=== PATIENT | female | born 1950 | race Caucasian/White ===

== ENCOUNTER 2018-02-19 10:24 | Inpatient (IN) ==
[2018-02-19] MEDS ORDERED: ACETAMINOPHEN 325 MG TABLET PO PRN (13:24)
[2018-02-19] MEDS ORDERED: DEXTROSE 50% 25 GM/50 ML SYRINGE IV PRN (13:24)
[2018-02-19] MEDS ORDERED: ONDANSETRON 4 MG/2 ML VIAL IV PRN (13:24)
[2018-02-19] MEDS ORDERED: GLUCAGON 1 MG VIAL IM PRN (13:24)
[2018-02-19] MEDS ORDERED: ZALEPLON 5 MG CAPSULE PO PRN (13:24)
[2018-02-19] MEDS ORDERED: POTASSIUM CHLORIDE RIDER 10 MEQ in PREMIX 1 EACH IV PRN (13:43)
[2018-02-19] MEDS ORDERED: MAGNESIUM SULF RIDER 4 GM in PREMIX 1 EACH IV PRN (13:43)
[2018-02-19] MEDS ORDERED: MAGNESIUM SULF RIDER 2 GM in PREMIX 1 EACH IV PRN (13:43)
[2018-02-19 13:59] LABS: Basophils # 0.1 10*3/uL (0.0-0.2); Basophils % 0.7 % (0.0-0.8); Eosinophils # 0.5 10*3/uL (0.0-0.87); Eosinophils % 5.3 % (0.00-10.9); Hematocrit 35.8 VOL% (35.7-47.0); Hemoglobin 11.8 GM/DL (12.0-16.0); Immature Granulocytes % 0.4 %; Immature Granulocytes Absolute 0.03 #; Lymphocytes # 1.3 10*3/uL (1.4-4.0); Lymphocytes % 15.4 % (21.3-54.2); Mean Corpuscular Hemoglobin 30 PG (27-34); Mean Corpuscular Volume 89.5 FL (87-102); Mean Platelet Volume 10.9 FL (9.6-12.0); Monocytes # 0.6 10*3/uL (0.11-0.8); Monocytes % 7.3 % (1.7-12.7); Neutrophils % 70.9 % (38.7-73.9); Platelet Count 150 T/CUMM (130-400); White Blood Count 8.5 T/CUMM (4-12)
[2018-02-19] MEDS ORDERED: SODIUM CHLORIDE 0.45% 1,000 ML IV SCH (14:30)
[2018-02-19 14:33] LABS: Albumin 3.5 G/DL (3.4-5.0); Bilirubin,Total 0.4 MG/DL (0.2-1.0); Calcium 10.4 MG/DL (8.5-10.1); Osmolality,Calculated 289.5 MOS/KG (273-304); Potassium 3.9 MMOL/L (3.5-5.1); Risk Ratio 4.13; Thyroid Stimulating Hormone 2.14 uIU/ml (0.358-3.74); Total Protein 7.6 G/DL (6.4-8.3)
[2018-02-19] MEDS: MAGNESIUM CHLORIDE 64 MG TABLET PO SCH (15:27)
[2018-02-19] MEDS: ACYCLOVIR 200 MG CAPSULE PO SCH ×2 (15:27→20:53)
[2018-02-19] MEDS: sitaGLIPtin 25 MG TABLET PO SCH (15:29)
[2018-02-19] MEDS: HEPARIN 5,000 UNIT/1 ML VIAL SUBCUT SCH ×3 (15:30→21:11)
[2018-02-19] MEDS: predniSONE 20 MG TABLET PO SCH (15:30)
[2018-02-19] MEDS: ASPIRIN EC 81 MG TABLET PO SCH (15:30)
[2018-02-19] MEDS: INSULIN REGULAR 100 UNIT/ML SUBCUT SCH ×2 (18:12→20:56)
[2018-02-19] MEDS: ALLOPURINOL 300 MG TABLET PO SCH (18:46)
[2018-02-19] MEDS: DOCUSATE SODIUM 100 MG CAPSULE PO SCH (20:53)
[2018-02-19] MEDS ORDERED: predniSONE 10 MG TABLET PO SCH (21:00)
[2018-02-20 04:59] LABS: Basophils # 0.1 10*3/uL (0.0-0.2); Basophils % 0.7 % (0.0-0.8); Eosinophils # 0.5 10*3/uL (0.0-0.87); Eosinophils % 5.5 % (0.00-10.9); Hematocrit 33.6 VOL% (35.7-47.0); Hemoglobin 10.8 GM/DL (12.0-16.0); Immature Granulocytes % 0.2 %; Immature Granulocytes Absolute 0.02 #; Lymphocytes # 1.9 10*3/uL (1.4-4.0); Lymphocytes % 21.4 % (21.3-54.2); Mean Corpuscular HGB Conc 32.1 GM/DL (32-36); Mean Corpuscular Hemoglobin 29 PG (27-34); Mean Corpuscular Volume 90.1 FL (87-102); Mean Platelet Volume 11.3 FL (9.6-12.0); Monocytes # 0.8 10*3/uL (0.11-0.8); Monocytes % 8.5 % (1.7-12.7); Neutrophils # 5.8 10*3/uL (1.4-7.4); Neutrophils % 63.7 % (38.7-73.9); Platelet Count 129 T/CUMM (130-400); Red Blood Count 3.73 MC/CUMM (3.8-5.5); Red Cell Distribution Width 13.9 % (9.3-17.3); White Blood Count 9.1 T/CUMM (4-12)
[2018-02-20 05:17] LABS: Albumin 3.3 G/DL (3.4-5.0); Bilirubin,Total 1.2 MG/DL (0.2-1.0); Calcium 9.3 MG/DL (8.5-10.1); Osmolality,Calculated 287.7 MOS/KG (273-304); Potassium 4.2 MMOL/L (3.5-5.1); Total Protein 6.9 G/DL (6.4-8.3)
[2018-02-20] MEDS: HEPARIN 5,000 UNIT/1 ML VIAL SUBCUT SCH (05:39)
[2018-02-20 06:36] LABS: Apearance,Urine Slightly Hazy (Clear); Bacteria,Urine Occasional /HPF (Few); Bilirubin,Urine Negative (Negative); Blood, Urine Negative (Negative); Glucose,Urine (UA) Negative (Negative); Ketones,Urine Negative (Negative); Nitrite,Urine Negative (Negative); Protein,Urine Negative; RBC,Urine 4 /HPF (0-4); Squamous Epithelial Cell,Urine Occasional /HPF (0-10); Urine Color Straw (Yellow); Urine Urobilinogen < 2.0 EU/DL (0.2-1.0); WBC,Urine 24 /HPF (0-6)
[2018-02-20] MEDS: INSULIN REGULAR 100 UNIT/ML SUBCUT SCH ×2 (08:29→13:06)
[2018-02-20] MEDS ORDERED: PANTOPRAZOLE 40 MG TABLET PO SCH (09:00)
[2018-02-20] MEDS: DOCUSATE SODIUM 100 MG CAPSULE PO SCH (09:25)
[2018-02-20] MEDS: ASPIRIN EC 81 MG TABLET PO SCH (09:25)
[2018-02-20] MEDS: predniSONE 20 MG TABLET PO SCH (09:26)
[2018-02-20] MEDS: ALLOPURINOL 300 MG TABLET PO SCH (09:27)
[2018-02-20] MEDS: MAGNESIUM CHLORIDE 64 MG TABLET PO SCH (09:27)
[2018-02-20] MEDS: ACYCLOVIR 200 MG CAPSULE PO SCH (09:28)
[2018-02-20] MEDS: sitaGLIPtin 25 MG TABLET PO SCH (09:28)
[2018-02-20 12:49] VITALS: BP 175/78
[2018-02-20] MEDS ORDERED: LORazepam 2 MG/1 ML VIAL IV ONE (14:13)
== END 2018-02-20 13:13 | disposition home or self-care (01) | DRG 74 ==
LOC: N.4E 11:49 → SUATTDRO 11:49
PROVIDERS: ADMIT Internal Medicine; ATTEND Internal Medicine